=== PATIENT | female | born 1965 | race Caucasian/White ===

== ENCOUNTER 2018-05-07 18:34 | Emergency (ER) | END 2018-05-08 02:37 | disposition home or self-care (01) ==

== ENCOUNTER 2018-08-09 09:11 | Emergency (ER) | payer MEDICAID, OTHER ==
[~2018-08-09] VITALS: Ht 165.1 cm; Wt 99.9 kg
[~2018-08-09 09:11] MED LIST: ALBU18HF INHALATION; PRED20TA PO
[2018-08-09 09:23] VITALS: Ht 165.1 cm; Wt 99.9 kg
[2018-08-09] MEDS ORDERED: METHYLPREDNISOLONE 125 MG INJ IV STA (11:12)
[2018-08-09] MEDS ORDERED: IPRATROPIUM (NEB) 0.5 MG/2.5 ML AMP INH STA (11:12)
[2018-08-09] MEDS ORDERED: ALBUTEROL 0.5% (NEB) 2.5 MG/0.5 ML AMP INH STA (11:12)
--- NOTE | 2018-08-09 11:12 | ERD ---
ER Documentation Chief Complaint Chief Complaint sob x 4 days HPI 53-year-old female history of hypertension, arthritis and asthma/COPD presents to the ED complaining of a 5-day history of worsening shortness of breath, wheezing and nonproductive cough. ROS All systems reviewed and are negative except as per history of present illness. Medications Home Meds Active Scripts Benzonatate* (Tessalon Perle*) 100 Mg Capsule, 100 MG PO Q8H PRN for COUGH, #12 CAP Prov:AINSLEY MAURICIO MD 08/09/18 Prednisone* (Prednisone*) 20 Mg Tab, 40 MG PO DAILY for 4 Days, TAB Prov:AINSLEY MAURICIO MD 08/09/18 Albuterol Sulfate* (Ventolin HFA*) 18 Gm Hfa.aer.ad, 2 PUFF INHALATION Q4H, #1 INHALER Prov:AINSLEY MAURICIO MD 08/09/18 Discontinued Scripts Prednisone* (Prednisone*) 20 Mg Tab, 40 MG PO DAILY for 4 Days, TAB Prov:NOEMI DAHL MD 05/08/18 Albuterol Sulfate* (Ventolin HFA*) 18 Gm Hfa.aer.ad, 2 PUFF INHALATION Q4H, #1 INHALER Prov:NOEMI DAHL MD 05/08/18 Allergies Allergies: Coded Allergies: No Known Allergy (Unverified , 08/09/18) PMhx/Soc History of Surgery: No Anesthesia Reaction: No Hx Neurological Disorder: No Hx Respiratory Disorders: Yes (Asthma) Hx Cardiac Disorders: No Hx Psychiatric Problems: No Hx Miscellaneous Medical Probl: Yes (ARTHRITIS ) Hx Alcohol Use: No Hx Substance Use: No Hx Tobacco Use: Yes Smoking Status: Current every day smoker Physical Exam Vitals Vital Signs Date Temp Pulse Resp B/P (MAP) Pulse Ox O2 O2 Flow FiO2 Time Delivery Rate 08/09/18 89 16 119/63 100 Mask 8.0 13:00 (81) 08/09/18 73 18 100 Nasal 2.0 11:37 Cannula 08/09/18 2 11:30 08/09/18 98.6 76 18 123/69 100 Nasal 2.0 11:03 (87) Cannula 08/09/18 2.0 11:03 08/09/18 98.9 77 22 135/80 97 09:23 (98) Physical Exam Const: Moderate respiratory distress Head: Atraumatic Eyes: Normal Conjunctiva ENT: Normal External Ears, Nose and Mouth. Neck: Full range of motion. No meningismus. Resp: Tachypneic. Decreased breath sounds with expiratory wheezing and prolonged expiratory phase. Cardio: Regular rate and rhythm, no murmurs Abd: Soft, non tender, non distended. Normal bowel sounds Skin: No petechiae or rashes Back: No midline or flank tenderness Ext: No cyanosis, or edema. No calf swelling or tenderness. Neur: Awake and alert Psych: Normal Mood and Affect Result Diagram: 08/09/18 1135 08/09/18 1135 Results 24 hrs Laboratory Tests Test 08/09/18 11:35 White Blood Count 9.0 10^3/ul Red Blood Count 4.44 10^6/ul Hemoglobin 12.8 g/dl Hematocrit 39.4 % Mean Corpuscular Volume 88.7 fl Mean Corpuscular Hemoglobin 28.8 pg Mean Corpuscular Hemoglobin Concent 32.5 g/dl Red Cell Distribution Width 12.9 % Platelet Count 103 10^3/UL Mean Platelet Volume 11.2 fl Immature Granulocytes % 0.300 % Neutrophils % % Segmented Neutrophils % (Manual) 53 % Band Neutrophils % (Manual) 3 % Lymphocytes % % Lymphocytes % (Manual) 39 % Monocytes % % Monocytes % (Manual) 1 % Eosinophils % % Eosinophils % (Manual) 1 % Basophils % % Basophils % (Manual) 1 % Metamyelocytes % (manual) 1 % Plasma Cells % (manual) 1 % Nucleated Red Blood Cells % 0.0 /100WBC Immature Granulocytes # 0.030 10^3/ul Neutrophils # 10^3/ul Neutrophils # (Manual) 4.8 10^3/ul Band Neutrophils # 0.2 10^3/ul Lymphocytes (Manual) 3.5 10^3/ul Lymphocytes # 10^3/ul Monocytes # 10^3/ul Monocytes # (Manual) 0.0 10^3/ul Eosinophils # 10^3/ul Basophils # 10^3/ul Basophils # (Manual) 0.0 10^3/ul Metamyelocytes # 0.0 10^3/ul Plasma Cells # (manual) 0.0 10^3/ul Nucleated Red Blood Cells # 10^3/ul Platelet Estimate DECREASED Giant Platelets 1 % Sodium Level 142 mmol/L Potassium Level 3.9 mmol/L Chloride Level 108 mmol/L Carbon Dioxide Level 25 mmol/L Anion Gap 9 Blood Urea Nitrogen 15 mg/dl Creatinine 0.65 mg/dl Est Glomerular Filtrat Rate mL/min > 60 mL/min Glucose Level 115 mg/dl Calcium Level 8.9 mg/dl Troponin I < 0.012 ng/ml Current Medications Medications Dose Sig/Kamar Start Time Status Last (Trade) Ordered Route PRN Stop Time Admin Dose Reason Admin Albuterol 15 mg ONCE STAT 08/09/18 DC 08/09/18 (Proventil INH 11:12 11:36 0.5% (Neb)) 08/09/18 11:14 Ipratropium 1 mg ONCE STAT 08/09/18 DC 08/09/18 [place] [facility] 11:12 11:36 (Atrovent 08/09/18 11:14 0.02% (Neb)) 125 mg ONCE STAT 08/09/18 DC 08/09/18 Methylprednis IV 11:12 11:41 olone Sodium 08/09/18 11:14 Succinate (Solu-Medrol) Procedures/MDM DOCUMENTS REVIEWED: ED nurse, prior records EKG: Time: 11:48. Sinus rhythm. Ventricular rate 68, normal GA and QRS intervals. No acute ST segment elevation or depression. No axis deviation or e ctopy. My Interpretation: Normal EKG Chest AP portable. Cardiac silhouette is normal. The costophrenic angles are clear. No effusions or infiltrates. No abnormalities of the bony thorax. My interpretation. ED COURSE: [] REEXAMINATION/REEVALUATION: Time: 16:08 MEDICAL DECISION MAKING: []. Stable for discharge with precautionary instructions and outpatient follow-up as counseled. Counseled patient[ and family] regarding diagnostic workup, diagnosis and need for followup. Understands to return to ED if symptoms recur, worsen or any other concerns. Departure Diagnosis: Primary Impression: Acute dyspnea Additional Impressions: Acute asthma exacerbation Asthma severity: moderate Asthma persistence: unspecified Qualified Codes: J45.901 - Unspecified asthma with (acute) exacerbation Thrombocytopenia Condition: Stable (Improved) AINSLEY MAURICIO MD Aug 09, 2018 11:12
[2018-08-09 16:00] VITALS: BP 124/72; PULSE 85; RESP 18
[2018-08-09] MEDS ORDERED: BENZ-6 PO (16:19)
[2018-08-09] MEDS ORDERED: PRED20TA PO (16:19)
[2018-08-09] MEDS ORDERED: ALBU18HF INHALATION (16:19)
== END 2018-08-09 17:08 | disposition home or self-care (01) ==
LOC: E/R 09:11
DX: J45.901 Unspecified asthma with (acute) exacerbation (principal); I10 Essential (primary) hypertension; F17.210 Nicotine dependence, cigarettes, uncomplicated; D69.6 Thrombocytopenia, unspecified; J44.9 Chronic obstructive pulmonary disease, unspecified
CPT/HCPCS: 71045; 80048; 84484; 85025; 93005; 94644; 96374; J2930; Z7502; Z7610

== ENCOUNTER 2019-03-26 19:37 | Emergency (ER) | payer OTHER ==
[~2019-03-26] VITALS: Ht 162.6 cm; Wt 73.6 kg
[~2019-03-26 19:37] MED LIST changes: -ALBU18HF INHALATION; +FLUT1AER INH; +IPRA3AMP29 HHN; +NICO-546 TRANSDERM; +NICO2GUM46 BUCCAL; -PRED20TA PO
[2019-03-26 19:40] VITALS: BP 114/79; PULSE 67; RESP 22; Ht 162.6 cm; Wt 73.6 kg
== END 2019-03-27 00:14 | disposition left against medical advice (07) ==
LOC: E/R 19:37
DX: Z53.21 Procedure and treatment not carried out due to patient leaving prior to being seen by health care provider (principal)